=== PATIENT | female | born 1950 | race Caucasian/White ===

== ENCOUNTER 2022-01-14 15:40 | Emergency (ER) | payer OTHER | END 2022-01-14 16:26 | disposition home or self-care (01) | LOC: LB.ED 15:43 | DX: T43.011A Poisoning by tricyclic antidepressants, accidental (unintentional), initial encounter (principal); Z91.018 Allergy to other foods; Z79.899 Other long term (current) drug therapy | CPT/HCPCS: 99283 ==

== ENCOUNTER 2024-01-07 16:22 | Emergency (ER) | payer OTHER ==
[2024-01-07] MEDS: Aspirin 81 MG Tab.Chew PO ONE (17:58)
[2024-01-07 18:50] LABS: HEMATOCRIT 44.2 % (37.0-47.0); HEMOGLOBIN 14.6 g/dL (11.5-16.5); MEAN CORPUSCULAR HEMOGLOBIN 29.7 pg (27.0-32.0); MEAN PLATELET VOLUME 10.8 fL (6.0-10.0); RED BLOOD CELL COUNT 4.91 M/uL (3.80-5.80); RED CELL DISTRIBUTION WIDTH 13.4 % (11.0-16.0); WHITE BLOOD CELL COUNT,WBC 6.2 K/uL (4.0-11.0)
[2024-01-07 18:52] LABS: ANION GAP 16.5 mmol/L (5.0-15.0); BLOOD UREA NITROGEN,BUN 12 mg/dL (8-26); BUN/CREATININE RATIO 14.5 (6-25); CALCIUM 9.2 mg/dL (8.5-10.1); CARBON DIOXIDE,CO2 25.1 mmol/L (21.0-32.0); CHLORIDE,CL 107 mmol/L (98-107); CREATININE 0.83 mg/dL (0.55-1.02); ESTIMATED GFR 74 mL/min (>60); GLUCOSE RANDOM 90 mg/dL (74-100); POTASSIUM,K 3.6 mmol/L (3.5-5.1); SODIUM,NA 145 mmol/L (136-145)
[2024-01-07] MEDS: Metoprolol Tartrate 50 MG Tab PO ONE (19:38)
[2024-01-07] MEDS: Metoprolol Tartrate 25 MG Tab ONE (19:43)
[2024-01-07] MEDS: Labetalol 100 MG/20 ML MDV IVPUSH ONE (21:10)
[2024-01-08] MEDS: Labetalol 100 MG/20 ML MDV ONE (00:41)
== END 2024-01-07 21:43 | disposition home or self-care (01) ==
LOC: LB.ED 16:22
DX: I11.9 Hypertensive heart disease without heart failure (principal); R07.89 Other chest pain; Z79.899 Other long term (current) drug therapy; Z79.890 Hormone replacement therapy; Z91.018 Allergy to other foods
CPT/HCPCS: 36415; 71045; 80048; 83735; 84484; 85027; 85379; 93005; 96374; 99285; A9270; J1921

== ENCOUNTER 2024-01-13 19:22 | Emergency (ER) | payer MEDICARE, OTHER ==
[2024-01-13 20:14] LABS: BASOPHILS ABSOLUTE AUTO 0.03 K/uL (0.02-0.10); BASOPHILS PERCENT AUTO 0.4 % (0.0-0.5); EOSINOPHILS ABSOLUTE AUTO 0.11 K/uL (0.04-0.40); EOSINOPHILS PERCENT AUTO 1.4 % (1.0-5.0); HEMATOCRIT 43.8 % (37.0-47.0); HEMOGLOBIN 14.5 g/dL (11.5-16.5); LYMPHOCYTES ABSOLUTE AUTO 3.45 K/uL (1.50-4.00); LYMPHOCYTES PERCENT AUTO 45.3 % (20.0-40.0); MEAN CORPUSCULAR HEMOGLOBIN 29.9 pg (27.0-32.0); MEAN CORPUSCULAR HGB CONC 33.1 g/dL (31.0-35.0); MEAN CORPUSCULAR VOLUME 90 fL (76-96); MEAN PLATELET VOLUME 11.4 fL (6.0-10.0); MONOCYTES ABSOLUTE AUTO 0.71 K/uL (0.20-0.80); MONOCYTES PERCENT AUTO 9.3 % (3.0-10.0); NEUTROPHILS ABSOLUTE AUTO 3.31 K/uL (2.00-7.50); NEUTROPHILS PERCENT AUTO 43.6 % (45.0-70.0); PLATELET COUNT,PLT 258 K/uL (150-500); RED BLOOD CELL COUNT 4.85 M/uL (3.80-5.80); RED CELL DISTRIBUTION WIDTH 13.4 % (11.0-16.0); WHITE BLOOD CELL COUNT,WBC 7.6 K/uL (4.0-11.0)
[2024-01-13] MEDS ORDERED: Sodium Chloride 0.9% 10 ML Syringe FLUSH PRN (20:16)
[2024-01-13] MEDS: Acetaminophen 500 MG Tab PO ONE (20:19)
[2024-01-13 20:32] LABS: A/G RATIO 1.1 (0.8-2.0); ANION GAP 16.9 mmol/L (5.0-15.0); BILIRUBIN TOTAL 0.8 mg/dL (0.0-1.0); BUN/CREATININE RATIO 15.3 (6-25); CARBON DIOXIDE,CO2 24.4 mmol/L (21.0-32.0); CREATININE 0.98 mg/dL (0.55-1.02); EST CRCL DRUG DOSING (CG) 36.72 mL/min; POTASSIUM,K 3.3 mmol/L (3.5-5.1); PROTEIN TOTAL,TP 7.6 g/dL (6.4-8.2)
[2024-01-13] MEDS: Iopamidol 755 Mg/ML 100 ML Bottle IV SCH (20:32)
[2024-01-13] MEDS: Sodium Chloride 0.9% 50 ML SDV FLUSH ONE (20:32)
== END 2024-01-13 22:00 | disposition home or self-care (01) ==
LOC: LB.ED 19:22
DX: R07.89 Other chest pain (principal); I10 Essential (primary) hypertension; Z91.018 Allergy to other foods; Z79.890 Hormone replacement therapy; Z79.899 Other long term (current) drug therapy; Z87.891 Personal history of nicotine dependence
CPT/HCPCS: 36415; 71275; 80053; 83735; 84484; 85025; 93005; 99285; A9270; J3490; Q9967; 93010; 99284

== ENCOUNTER 2025-01-06 10:17 | Emergency (ER) | payer MEDICARE, OTHER | END 2025-01-06 12:05 | disposition home or self-care (01) | LOC: LB.ED 10:17 | DX: R42 Dizziness and giddiness (principal); I10 Essential (primary) hypertension; E03.9 Hypothyroidism, unspecified; Z91.018 Allergy to other foods; Z79.890 Hormone replacement therapy; Z79.899 Other long term (current) drug therapy | CPT/HCPCS: 70450; 99284 ==